=== PATIENT | male | born 1980 | race Caucasian/White ===

== ENCOUNTER 2017-12-24 09:10 | Emergency (ER) | END 2017-12-24 13:18 | disposition home or self-care (01) ==

== ENCOUNTER 2018-04-04 22:32 | Inpatient (IN) | payer BC ==
[~2018-04-04] VITALS: Ht 182.9 cm; Wt 89.1 kg
[~2018-04-04 22:32] MED LIST: MECL12.574 PO
[2018-04-05 00:12] VITALS: BP 123/64; PULSE 86; RESP 18
[2018-04-05] MEDS: SOD CHLORIDE 0.9% 1,000 ML IV SCH ×3 (01:26→17:59)
[2018-04-05] MEDS: metroNIDAZOLE 500 MG/NS (PMX) 100 ML IVPB SCH ×4 (01:26→21:56)
[2018-04-05] MEDS: morphine 2 MG INJ IV PRN ×5 (01:26→19:37)
--- NOTE | 2018-04-05 01:28 | HP ---
Date/Time of Note Date/Time of Note DATE: 04/05/18 TIME: :27 Assessment/Plan VTE Prophylaxis Pharmacological prophylaxis: other Lines/Catheters IV Catheter Type (from [facility], [place]): Saline Lock Assessment/Plan Hospital Course Objective Physical exam General: Patient is laying in bed and answers questions appropriately Mentation: Patient is alert and oriented 4, Head: Normocephalic atraumatic Eyes: EOMI, pupils reactive to light Neck: Supple, nontender, midline Respiratory: Clear to auscultation bilaterally Cardiovascular: regular rate, no obvious murmurs Gastrointestinal: non-tender to palpation, bowel sounds heard. Neurological: Moves all extremities spontaneously Rectal: Tenderness to palpation, full rectal exam refused due to pain Assessment and plan Perirectal abscess -[address] from outside facility -Dr. Jatin San, has been consulted, however at this time has not confirmed consultation -IV antibiotic -Appears stable and not septic when comparing to outside facility labs and cu rrent vitals History of hemorrhoids -Monitor Disposition -Awaiting surgical evaluation for decision on how to drain perirectal abscess, keep n.p.o. with IV fluid until then. . HPI/ROS Admit Date/Time Admit Date/Time Apr 04, 2018 at 23:48 Hx of Present Illness Patient is a male with a past medical history only significant for hemorrhoids who presents to [facility] as a transfer from outside facility for perirectal abscess. Patient has been having rectal pain for approximately 4 days at this time. Patient otherwise feels comfortable has no other acute issues. Patient denies chest pain, shortness of breath, headache, nausea, vomiting, abdominal pain, leg pain .patient did complain of some dysuria at outside facility however UA at outside facility was negative. PMH/Family/Social Past Medical History Medications Current Medications Sodium Chloride 1,000 ml @ 100 mls/hr Q10H IV ; Start 04/05/18 at 01:06 IV Flush (NS 3 ml) 3 ml PER PROTOCOL IV ; Start 04/05/18 at 01:30 Ondansetron HCl (Zofran Inj) 4 mg Q6H PRN IV NAUSEA/VOMITING; Start 04/05/18 at 01:30 Acetaminophen (Tylenol Tab) 650 mg Q6H PRN PO .PAIN 1-3 OR TEMP; Start 04/05/18 at 01:30 Acetaminophen/ Hydrocodone Bitart ([place] (5/325)) 1 tab Q6H PRN PO .PAIN 4-6; Start 04/05/18 at 01:30 Morphine Sulfate (morphine) 4 mg Q4H PRN IV .PAIN 7-10; Start 04/05/18 at 01:30 Pantoprazole (Protonix Iv) 40 mg DAILY@06 IV ; Start 04/05/18 at 06:00 Ciprofloxacin/ Dextrose 200 ml @ 200 mls/hr Q12 IVPB ; Start 04/05/18 at 01:31 Metronidazole 100 ml @ 100 mls/hr Q8 IVPB ; Start 04/05/18 at 01:31 Coded Allergies: cephalexin (Verified Allergy, Mild, 04/05/18) Social History Smoking Status: Light tobacco smoker Exam/Review of Systems Vital Signs Vitals Vital Signs Date Temp Pulse Resp B/P (MAP) Pulse Ox O2 O2 Flow FiO2 Time Delivery Rate 04/05/18 98.3 86 18 123/64 97 00:12 (83) ANMOL PISANO Apr 05, 2018 01:28
[2018-04-05] MEDS ORDERED: ONDANSETRON 4 MG INJ IV PRN (01:30)
[2018-04-05] MEDS ORDERED: NACL 0.9% 3 ML SYG IV SCH (01:30)
[2018-04-05] MEDS ORDERED: ACETAMINOPHEN 325 MG TAB PO PRN (01:30)
[2018-04-05] MEDS ORDERED: HYDROCODONE/APAP (5/325) TAB PO PRN (01:30)
[2018-04-05] MEDS: CIPROFLOXACIN 400MG/D5W 200 ML IVPB SCH ×3 (02:43→20:37)
[2018-04-05 02:48] VITALS: BP 108/59; PULSE 76; RESP 18
[2018-04-05] MEDS ORDERED: PANTOPRAZOLE 40 MG INJ ONE (04:31)
[2018-04-05] MEDS: PANTOPRAZOLE 40 MG INJ IV SCH (06:18)
[2018-04-05 07:57] VITALS: BP 109/57; PULSE 73; RESP 18
--- NOTE | 2018-04-05 13:27 | PN ---
Date/Time of Note Date/Time of Note DATE: 04/05/18 TIME: 13:27 Assessment/Plan VTE Prophylaxis SCD applied (from Nsg): Yes Pharmacological prophylaxis: NA/contraindicated Pharm contraindication: low risk/ambulating Lines/Catheters IV Catheter Type (from Nrsg): Peripheral IV Assessment/Plan Hospital Course SUBJECTIVE: Lying in bed, not in acute distress OBJECTIVE: Vital signs-see below PHYSICAL EXAM: Constitutional: Well-developed, adequately built Ivorian male, lying in bed comfortably. Psych: nl mood/affect, no complaints Head: atraumatic, normocephalic Eyes: nl conjunctiva, nl sclera ENMT: mucosa pink and moist, nl external ears & nose Neck: non-tender, supple Respiratory: clear to auscultation, normal air movement Cardiovascular: nl pulses, regular rate and rhythm Gastrointestinal: non-tender, soft, bowel sounds active in all 4 quadrants. Musculoskeletal/extremities: nl extremities to inspection, motor strength equal bilaterally, no focal deficit. Normal pulses,no cyanosis, no edema. Neurological: Alert oriented 3,nl speech, nl strength Skin: nl turgor Rectal exam: Patient refused to be examined secondary to pain and multiple exams in the past for which he is upset. ASSESSMENT/PLAN: 37-year-old male with history of hemorrhoid, who was previously told to have surgical follow-up and was unable to do so, was transferred from outside hospital for further management of perirectal abscess. 1. Perirectal abscess -General surgery has been consulted,(i left message to again today). We also feel like this may also need a colorectal surgery involvement=>will aw ait for sx recs.. -Continue antibiotics which she is currently on, pain control. 2. Hemorrhoids -Treatment as in #1. DVT prophylaxis: Not indicated PUD prophylaxis: Not indicated CODE STATUS: Full code Diet: N.p.o. until evaluated by surgeon. Disposition: Follow-up surgery recommendations. Ivorian translation was used during the entire conversation, questions answered to satisfaction. Patient and family in agreement with current plan. Patient was seen in collaboration with . Result Diagram: 04/05/18 0138 04/05/18 0138 Results 24hrs Laboratory Tests Test 04/05/18 01:38 04/05/18 10:54 White Blood Count 7.8 # Red Blood Count 4.37 L Hemoglobin 13.0 L Hematocrit 38.6 L Mean Corpuscular Volume 88.3 Mean Corpuscular Hemoglobin 29.7 Mean Corpuscular Hemoglobin Concent 33.7 Red Cell Distribution Width 13.3 Platelet Count 163 Mean Platelet Volume 10.3 # Immature Granulocytes % 0.500 H Neutrophils % 65.9 Lymphocytes % 24.6 Monocytes % 7.9 Eosinophils % 1.0 Basophils % 0.1 Nucleated Red Blood Cells % 0.0 Immature Granulocytes # 0.040 H Neutrophils # 5.2 Lymphocytes # 1.9 Monocytes # 0.6 Eosinophils # 0.1 Basophils # 0.0 Nucleated Red Blood Cells # 0.0 Sodium Level 138 Potassium Level 4.1 Chloride Level 103 Carbon Dioxide Level 27 Anion Gap 8 Blood Urea Nitrogen 17 Creatinine 1.08 Est Glomerular Filtrat Rate mL/min > 60 Glucose Level 101 Calcium Level 9.2 Total Bilirubin 0.2 Direct Bilirubin 0.00 Indirect Bilirubin 0.2 Aspartate Amino Transf (AST/SGOT) 19 Alanine Aminotransferase (ALT/SGPT) 24 Alkaline Phosphatase 82 Total Protein 7.3 Albumin 4.1 Globulin 3.20 Albumin/Globulin Ratio 1.28 Urine Color YELLOW Urine Clarity CLEAR Urine pH 5.0 Urine Specific [place] 1.030 Urine Ketones NEGATIVE Urine Nitrite NEGATIVE Urine Bilirubin NEGATIVE Urine Urobilinogen NEGATIVE Urine Leukocyte Esterase NEGATIVE Urine Microscopic RBC 1 Urine Microscopic WBC 1 Urine Mucus FEW A Urine Hemoglobin NEGATIVE Urine Glucose NEGATIVE Urine Total Protein NEGATIVE Exam/Review of Systems Exam Vitals Vital Signs Date Temp Pulse Resp B/P (MAP) Pulse Ox O2 O2 Flow FiO2 Time Delivery Rate 04/05/18 98.4 73 18 109/57 98 07:57 (74) Intake and Output 04/04/18 04/04/18 04/05/18 1414:59 22:59 06:59 IntakeIntake Total 500 ml BalanceBalance 500 ml Results Results 24hrs Laboratory Tests Test 04/05/18 01:38 04/05/18 10:54 White Blood Count 7.8 # Red Blood Count 4.37 L Hemoglobin 13.0 L Hematocrit 38.6 L Mean Corpuscular Volume 88.3 Mean Corpuscular Hemoglobin 29.7 Mean Corpuscular Hemoglobin Concent 33.7 Red Cell Distribution Width 13.3 Platelet Count 163 Mean Platelet Volume 10.3 # Immature Granulocytes % 0.500 H Neutrophils % 65.9 Lymphocytes % 24.6 Monocytes % 7.9 Eosinophils % 1.0 Basophils % 0.1 Nucleated Red Blood Cells % 0.0 Immature Granulocytes # 0.040 H Neutrophils # 5.2 Lymphocytes # 1.9 Monocytes # 0.6 Eosinophils # 0.1 Basophils # 0.0 Nucleated Red Blood Cells # 0.0 Sodium Level 138 Potassium Level 4.1 Chloride Level 103 Carbon Dioxide Level 27 Anion Gap 8 Blood Urea Nitrogen 17 Creatinine 1.08 Est Glomerular Filtrat Rate mL/min > 60 Glucose Level 101 Calcium Level 9.2 Total Bilirubin 0.2 Direct Bilirubin 0.00 Indirect Bilirubin 0.2 Aspartate Amino Transf (AST/SGOT) 19 Alanine Aminotransferase (ALT/SGPT) 24 Alkaline Phosphatase 82 Total Protein 7.3 Albumin 4.1 Globulin 3.20 Albumin/Globulin Ratio 1.28 Urine Color YELLOW Urine Clarity CLEAR Urine pH 5.0 Urine Specific [place] 1.030 Urine Ketones NEGATIVE Urine Nitrite NEGATIVE Urine Bilirubin NEGATIVE Urine Urobilinogen NEGATIVE Urine Leukocyte Esterase NEGATIVE Urine Microscopic RBC 1 Urine Microscopic WBC 1 Urine Mucus FEW A Urine Hemoglobin NEGATIVE Urine Glucose NEGATIVE Urine Total Protein NEGATIVE Medications Medication Current Medications Sodium Chloride 1,000 ml @ 100 mls/hr Q10H IV Last administered on 04/05/18at 01:26; Admin Dose 100 MLS/HR; Start 04/05/18 at 01:06 IV Flush (NS 3 ml) 3 ml PER PROTOCOL IV ; Start 04/05/18 at 01:30 Ondansetron HCl (Zofran Inj) 4 mg Q6H PRN IV NAUSEA/VOMITING; Start 04/05/18 at 01:30 Acetaminophen (Tylenol Tab) 650 mg Q6H PRN PO .PAIN 1-3 OR TEMP; Start 04/05/18 at 01:30 Acetaminophen/ Hydrocodone Bitart ([place] (5/325)) 1 tab Q6H PRN PO .PAIN 4-6; Start 04/05/18 at 01:30 Morphine Sulfate (morphine) 4 mg Q4H PRN IV .PAIN 7-10 Last administered on 04/05/18at 10:47; Admin Dose 4 MG; Start 04/05/18 at 01:30 Pantoprazole (Protonix Iv) 40 mg DAILY@06 IV Last administered on 04/05/18at 06:18; Admin Dose 40 MG; Start 04/05/18 at 06:00 Ciprofloxacin/ Dextrose 200 ml @ 200 mls/hr Q12 IVPB Last administered on 04/05/18at 10:47; Admin Dose 200 MLS/HR; Start 04/05/18 at 01:31 Metronidazole 100 ml @ 100 mls/hr Q8 IVPB Last administered on 04/05/18at 06:25; Admin Dose 100 MLS/HR; Start 04/05/18 at 01:31 CAROL LEVY NP Apr 05, 2018 13:27
[2018-04-05 14:41] VITALS: BP 116/69; PULSE 77; RESP 18
--- NOTE | 2018-04-05 14:43 | QN ---
Documentation Comment I just spoke with Dr. San who will see patient later today and okay to start a diet until evaluated by him. CAROL LEVY NP Apr 05, 2018 14:43
[2018-04-05 20:35] VITALS: BP 111/55; PULSE 70; RESP 18
[2018-04-05] MEDS: DOCUSATE SODIUM 100 MG CAP PO SCH (20:37)
--- NOTE | 2018-04-05 23:24 | CONS ---
Assessment/Plan Assessment/Plan Assessment/Plan (Daily) Possible perirectal abscess which was a tenderness history of hemorrhoids no bleeding no drainage normal blood cell count. CAT scan reveals a 12 mm area which with surrounding inflammation consistent with perirectal abscess. Recommendation examination under anesthesia with expiration possible drainage of perirectal abscess. Discussed with patient through his sister who is bilingual Persian and Luxembourger my assessment and details of plan also explained that if he I&D was performed that this would not be closed and would require healing by secondary intention. Patient is agreeable to proceed we will plan patient was scheduled for tomorrow. Consultation Date/Type/Reason Admit Date/Time Apr 04, 2018 at 23:48 Date of Consultation: Apr 05, 2018 Type of Consult Surgical consult Reason for Consultation Rectal pain question perirectal abscess Requesting Provider: CAROL LEVY NP Date/Time of Note DATE: 04/05/18 TIME: 23:23 Hx of Present Illness Patient 37-year-old male who was transferred from [facility] due to insurance reasons with 4-day history of eliud-rectal pain. Patient states that in the past he was told that he had hemorrhoids and was going to seek surgical consultation. Patient presented with pain in the upper gluteal cleft without bleeding or drainage. On evaluation at [facility] labs and imaging CAT scan revealed a possible developing perirectal abscess at the 12 o'clock position at the upper aspect of the gluteal cleft measuring approximately 1/2 cm. White blood cell count has been normal. Patient complains of exquisite tenderness in the area mentioned without any internal issues though he has had some constipation earlier today. Past medical history unremarkable Past Medical History Medical History: no pertinent history Home Meds Active Scripts Meclizine Hcl* (Antivert*) 12.5 Mg Tab, 12.5 MG PO Q6H PRN for DIZZINESS, #20 TAB Prov:ANNE OH MD 12/24/17 Medications Current Medications Sodium Chloride 1,000 ml @ 100 mls/hr Q10H IV Last administered on 04/05/18at 17:59; Admin Dose 100 MLS/HR; Start 04/05/18 at 01:06 IV Flush (NS 3 ml) 3 ml PER PROTOCOL IV ; Start 04/05/18 at 01:30 Ondansetron HCl (Zofran Inj) 4 mg Q6H PRN IV NAUSEA/VOMITING; Start 04/05/18 at 01:30 Acetaminophen (Tylenol Tab) 650 mg Q6H PRN PO .PAIN 1-3 OR TEMP; Start 04/05/18 at 01:30 Acetaminophen/ Hydrocodone Bitart ([place] (5/325)) 1 tab Q6H PRN PO .PAIN 4-6; Start 04/05/18 at 01:30 Morphine Sulfate (morphine) 4 mg Q4H PRN IV .PAIN 7-10 Last administered on 04/05/18 19:37; Admin Dose 4 MG; Start 04/05/18 at 01:30 Pantoprazole (Protonix Iv) 40 mg DAILY@06 IV Last administered on 04/05/18 06:18; Admin Dose 40 MG; Start 04/05/18 at 06:00 Ciprofloxacin/ Dextrose 200 ml @ 200 mls/hr Q12 IVPB Last administered on 04/05/18 20:37; Admin Dose 200 MLS/HR; Start 04/05/18 at 01:31 Metronidazole 100 ml @ 100 mls/hr Q8 IVPB Last administered on 04/05/18 21:56; Admin Dose 100 MLS/HR; Start 04/05/18 at 01:31 Docusate Sodium (Colace) 100 mg BID PO Last administered on 04/05/18 20:37; Admin Dose 100 MG; Start 04/05/18 at 21:00 Allergies: Coded Allergies: cephalexin (Verified Allergy, Mild, 04/05/18) Social History Smoking Status: Light tobacco smoker Exam/Review of Systems Exam Vitals Vital Signs Date Temp Pulse Resp B/P (MAP) Pulse Ox O2 O2 Flow FiO2 Time Delivery Rate 04/05/18 98.6 21:56 04/05/18 70 18 111/55 100 20:35 (73) Intake and Output 04/04/18 04/04/18 04/05/18 1515:00 23:00 07:00 IntakeIntake Total 500 ml BalanceBalance 500 ml Exam Generally in good health lungs clear to auscultation heart regular rhythm abdomen benign. On rectal examination there is no evidence of fissure or external hemorrhoid there is marked tenderness in the upper aspect of the gluteal cleft by the peritoneum at the anal opening which is somewhat indurated though no appearance of the drainage. Results Result Diagram: 04/05/18 0138 04/05/18 0138 Results 24hrs Laboratory Tests Test 04/05/18 01:38 04/05/18 10:54 White Blood Count 7.8 # Red Blood Count 4.37 L Hemoglobin 13.0 L Hematocrit 38.6 L Mean Corpuscular Volume 88.3 Mean Corpuscular Hemoglobin 29.7 Mean Corpuscular Hemoglobin Concent 33.7 Red Cell Distribution Width 13.3 Platelet Count 163 Mean Platelet Volume 10.3 # Immature Granulocytes % 0.500 H Neutrophils % 65.9 Lymphocytes % 24.6 Monocytes % 7.9 Eosinophils % 1.0 Basophils % 0.1 Nucleated Red Blood Cells % 0.0 Immature Granulocytes # 0.040 H Neutrophils # 5.2 Lymphocytes # 1.9 Monocytes # 0.6 Eosinophils # 0.1 Basophils # 0.0 Nucleated Red Blood Cells # 0.0 Sodium Level 138 Potassium Level 4.1 Chloride Level 103 Carbon Dioxide Level 27 Anion Gap 8 Blood Urea Nitrogen 17 Creatinine 1.08 Est Glomerular Filtrat Rate mL/min > 60 Glucose Level 101 Calcium Level 9.2 Total Bilirubin 0.2 Direct Bilirubin 0.00 Indirect Bilirubin 0.2 Aspartate Amino Transf (AST/SGOT) 19 Alanine Aminotransferase (ALT/SGPT) 24 Alkaline Phosphatase 82 Total Protein 7.3 Albumin 4.1 Globulin 3.20 Albumin/Globulin Ratio 1.28 Urine Color YELLOW Urine Clarity CLEAR Urine pH 5.0 Urine Specific [place] 1.030 Urine Ketones NEGATIVE Urine Nitrite NEGATIVE Urine Bilirubin NEGATIVE Urine Urobilinogen NEGATIVE Urine Leukocyte Esterase NEGATIVE Urine Microscopic RBC 1 Urine Microscopic WBC 1 Urine Mucus FEW A Urine Hemoglobin NEGATIVE Urine Glucose NEGATIVE Urine Total Protein NEGATIVE Medications Medication Current Medications Sodium Chloride 1,000 ml @ 100 mls/hr Q10H IV Last administered on 04/05/18at 17:59; Admin Dose 100 MLS/HR; Start 04/05/18 at 01:06 IV Flush (NS 3 ml) 3 ml PER PROTOCOL IV ; Start 04/05/18 at 01:30 Ondansetron HCl (Zofran Inj) 4 mg Q6H PRN IV NAUSEA/VOMITING; Start 04/05/18 at 01:30 Acetaminophen (Tylenol Tab) 650 mg Q6H PRN PO .PAIN 1-3 OR TEMP; Start 04/05/18 at 01:30 Acetaminophen/ Hydrocodone Bitart ([place] (5/325)) 1 tab Q6H PRN PO .PAIN 4-6; Start 04/05/18 at 01:30 Morphine Sulfate (morphine) 4 mg Q4H PRN IV .PAIN 7-10 Last administered on 04/05/18 19:37; Admin Dose 4 MG; Start 04/05/18 at 01:30 Pantoprazole (Protonix Iv) 40 mg DAILY@06 IV Last administered on 04/05/18 06:18; Admin Dose 40 MG; Start 04/05/18 at 06:00 Ciprofloxacin/ Dextrose 200 ml @ 200 mls/hr Q12 IVPB Last administered on 04/05/18 20:37; Admin Dose 200 MLS/HR; Start 04/05/18 at 01:31 Metronidazole 100 ml @ 100 mls/hr Q8 IVPB Last administered on 04/05/18 21:56; Admin Dose 100 MLS/HR; Start 04/05/18 at 01:31 Docusate Sodium (Colace) 100 mg BID PO Last administered on 04/05/18 20:37; Admin Dose 100 MG; Start 04/05/18 at 21:00 MARTHA TEJADA MD Apr 05, 2018 23:24
[2018-04-06] VITALS (18 sets, daily range): BP systolic 105–134; BP diastolic 51–79; PULSE 70–105; RESP 15–20
[2018-04-06] MEDS ORDERED: KETOROLAC 30 MG INJ IM PRN (02:30)
[2018-04-06] MEDS ORDERED: ACETAMINOPHEN 1000MG/100ML IV 100 ML IVPB PRN (03:00)
[2018-04-06] MEDS: PANTOPRAZOLE 40 MG INJ IV SCH (05:27)
[2018-04-06] MEDS: metroNIDAZOLE 500 MG/NS (PMX) 100 ML IVPB SCH ×3 (05:27→21:58)
[2018-04-06] MEDS: SOD CHLORIDE 0.9% 1,000 ML IV SCH ×2 (05:28→17:06)
[2018-04-06] MEDS: morphine 2 MG INJ IV PRN ×2 (05:29→16:54)
[2018-04-06] MEDS: CIPROFLOXACIN 400MG/D5W 200 ML IVPB SCH ×2 (08:43→20:32)
[2018-04-06] MEDS: DOCUSATE SODIUM 100 MG CAP PO SCH ×2 (08:43→20:32)
--- NOTE | 2018-04-06 10:56 | PREAC ---
Date/Time of Note Date/Time of Note DATE: 04/06/18 TIME: 10:54 Anesthesia Eval and Record Evaluation Time Pre-Procedure Interview DATE: 04/06/18 TIME: 10:54 Age 37 Sex male NPO: 8 hrs Preoperative diagnosis hemorroid perirectal abscess Planned procedure I &D perirectal abcess EUA Past Medical History Past Medical History: None Surgery & Anesthesia Issues No known issue Meds Anticoagulation: No Beta Stanley within 24 hr: No Reason Beta Stanley not given: Pt. not on B-Stanley Active Scripts Meclizine Hcl* (Antivert*) 12.5 Mg Tab, 12.5 MG PO Q6H PRN for DIZZINESS, #20 TAB Prov:ANNE OH MD 12/24/17 Current Medications Sodium Chloride 1,000 ml @ 100 mls/hr Q10H IV Last administered on 04/06/18at 05:28; Admin Dose 100 MLS/HR; Start 04/05/18 at 01:06 IV Flush (NS 3 ml) 3 ml PER PROTOCOL IV ; Start 04/05/18 at 01:30 Ondansetron HCl (Zofran Inj) 4 mg Q6H PRN IV NAUSEA/VOMITING; Start 04/05/18 at 01:30 Acetaminophen (Tylenol Tab) 650 mg Q6H PRN PO .PAIN 1-3 OR TEMP; Start 04/05/18 at 01:30 Acetaminophen/ Hydrocodone Bitart ([place] (5/325)) 1 tab Q6H PRN PO .PAIN 4-6; Start 04/05/18 at 01:30 Morphine Sulfate (morphine) 4 mg Q4H PRN IV .PAIN 7-10 Last administered on 04/06/18at 05:29; Admin Dose 4 MG; Start 04/05/18 at 01:30 Pantoprazole (Protonix Iv) 40 mg DAILY@06 IV Last administered on 04/06/18at 05:27; Admin Dose 40 MG; Start 04/05/18 at 06:00 Ciprofloxacin/ Dextrose 200 ml @ 200 mls/hr Q12 IVPB Last administered on 04/06/18at 08:43; Admin Dose 200 MLS/HR; Start 04/05/18 at 01:31 Metronidazole 100 ml @ 100 mls/hr Q8 IVPB Last administered on 04/06/18at 05:27; Admin Dose 100 MLS/HR; Start 04/05/18 at 01:31 Docusate Sodium (Colace) 100 mg BID PO Last administered on 04/05/18at 20:37; Admin Dose 100 MG; Start 04/05/18 at 21:00 Acetaminophen 100 ml @ 400 mls/hr Q12 PRN IVPB MILD PAIN(1-3)OR ELEVATED TEMP Last administered on 04/06/18at 02:48; Admin Dose 400 MLS/HR; Start 04/06/18 at 03:00; Stop 04/07/18 at 02:59 Meds reviewed: Yes Allergies Coded Allergies: cephalexin (Verified Allergy, Mild, 04/05/18) Allergies Reviewed: Yes Labs/Studies Labs Reviewed: Reviewed by anesthesiologist Result Diagram: 04/06/18 0454 04/06/18 0454 Laboratory Tests 04/06/18 04:54 test: N/A Studies: ECG (n/a), CXR (n/a) Pre-procedure Exam Last vitals Vital Signs Date Temp Pulse Resp B/P (MAP) Pulse Ox O2 O2 Flow FiO2 Time Delivery Rate 04/06/18 99.1 70 18 109/58 96 08:00 (75) Airway: Adequate mouth opening Mallampati: Mallampati I Teeth: Normal Lung: Normal Heart: Normal ASA Physical Status ASA physical status: 1 Emergency: None Planned Anesthetic General/MAC: LMA, MAC Planned Pain Management Parenteral pain med Pre-operative Attestations Prior to commencing anesthesia and surgery, the patient was re-evaluated, there was verification of: *The patient's identity *The results of appropriate recent lab work and preoperative vital signs *The above evaluation not changing prior to induction *Anesthetic plan, risk benefits, alternative and complications discussed with patient/family; questions answered; patient/family understands, accepts and wishes to proceed. LIZ MANRIQUEZ MD Apr 06, 2018 10:56
[2018-04-06] MEDS ORDERED: MEPERIDINE 25 MG INJ IV PRN (11:00)
[2018-04-06] MEDS ORDERED: HYDROmorphONE 1 MG/5 ML IV SYRINGE IV PRN ×3 (11:00)
[2018-04-06] MEDS ORDERED: hydrALAzine 20 MG INJ IV PRN (11:00)
[2018-04-06] MEDS ORDERED: DIPHENHYDRAMINE 50 MG INJ IV PRN (11:00)
[2018-04-06] MEDS ORDERED: LABETALOL HCL 20MG INJ IV PRN (11:00)
[2018-04-06] MEDS ORDERED: ONDANSETRON 4 MG INJ IV PRN (11:00)
[2018-04-06] MEDS ORDERED: EPHEDrine SULFATE 50 MG/5 ML SYG IV PRN (11:00)
[2018-04-06] MEDS ORDERED: PROPOFOL 20 ML ONE ×2 (11:10→11:52)
[2018-04-06] MEDS ORDERED: FENTAnyl 50 MCG/ML VIAL ONE ×2 (11:10→11:52)
[2018-04-06] MEDS ORDERED: ONDANSETRON 4 MG INJ ONE (11:12)
[2018-04-06] MEDS ORDERED: METOCLOPRAMIDE 10 MG INJ ONE (11:12)
[2018-04-06] MEDS ORDERED: LIDOCAINE 1%/EPI (1:100,000) (MDV) 20 ML ONE (11:30)
[2018-04-06] MEDS ORDERED: BUPIVACAINE 0.5% (SDV) 30 ML INJ ONE (11:30)
[2018-04-06] MEDS ORDERED: MEPERIDINE 100 MG INJ ONE (12:06)
[2018-04-06] MEDS ORDERED: SUCCINYLCHOLINE CHLORIDE 100 MG/5 ML SYG IV ONE (12:06)
--- NOTE | 2018-04-06 12:54 | OPR ---
Date/Time of Note Date/Time of Note DATE: 04/06/18 TIME: 12:50 Operative Report Free Text/Dictation Operative report Procedure Date: Apr 06, 2018 Preoperative Diagnosis Perianal and perirectal abscess Postoperative Diagnosis Posterior perirectal abscess Operation/Procedure Performed Examination under anesthesia incision and drainage posterior perirectal abscess Surgeon Martha San see signature line Pipe Line Gauger None Anesthesia Type: MAC Anesthesiologist: LIZ MANRIQUEZ MD Estimated Blood Loss: 0 - 10 ml's Transfusion none Specimen Culture of pus for culture and sensitivity Grafts/Implants none Tubes/Drains None Complications none Pt Condition Post Procedure: stable Disposition: PACU Indications Patient presented with severe pain and lump in the perirectal space posterior to the rectum. Patient had CAT scan at outside hospital which showed a 1/2 cm area which might be a developing abscess. He was transferred to [facility]. Surgical evaluation was requested I saw the patient had exquisite tenderness and was unable to tolerate rectal exam I recommended examination under anesthesia and drainage of perirectal abscess. Procedure Description Patient brought to the operating placed supine position monitored anesthesia with LMA was initiated patient was placed in stirrups shaved prepped and draped. Timeout was completed. Digital examination was performed and then anoscopy which showed moderate hemorrhoid without bleeding no evidence of fissure or fistula in the posterior peritoneum there was a firm lump which was attempted to be aspirated which did not express any fluid. An incision was then made with a scalpel and hemostat then entered a pocket of pus which was cultured and sent for aerobes anaerobes and sensitivity. The area was explored there is again no evidence of fistula. Hemostasis was controlled with monopolar cautery the wound was then irrigated packed with half- inch Nu Gauze and the patient was brought to recovery room in stable condition MARTHA SAN MD Apr 06, 2018 12:54
[2018-04-06] MEDS ORDERED: metroNIDAZOLE 500 MG/NS (PMX) 100 ML IVPB SCH (13:00)
[2018-04-06] MEDS ORDERED: CIPROFLOXACIN 400MG/D5W 200 ML IVPB SCH (13:00)
--- NOTE | 2018-04-06 21:41 | PN ---
Date/Time of Note Date/Time of Note DATE: 04/06/18 TIME: 21:39 Assessment/Plan VTE Prophylaxis Risk score (from Ns)>0 risk: 1 SCD applied (from [facility] [place]): Yes SCD contraindicated: low risk/ambulating Pharmacological prophylaxis: NA/contraindicated Pharm contraindication: surgical contra Lines/Catheters IV Catheter Type (from [facility]): Peripheral IV Assessment/Plan Hospital Course A/P 1 Perirectal Abscess, s/p I&D; stable. home soon on antibiotics 2 Hemorrhoids S: no distress O: vss PE no pallor reg s1s2 no mrg ctab bs+ nt; nd; no rrg no edema Result Diagram: 04/06/1845304/06/184 Results 24hrs Laboratory Tests Test 04/06/18 04:54 White Blood Count 9.3 Red Blood Count 4.33 L Hemoglobin 12.9 L Hematocrit 38.3 L Mean Corpuscular Volume 88.5 Mean Corpuscular Hemoglobin 29.8 Mean Corpuscular Hemoglobin Concent 33.7 Red Cell Distribution Width 13.2 Platelet Count 172 Mean Platelet Volume 10.5 H Immature Granulocytes % 0.400 Neutrophils % 72.3 Lymphocytes % 20.2 Monocytes % 6.5 Eosinophils % 0.3 Basophils % 0.3 Nucleated Red Blood Cells % 0.0 Immature Granulocytes # 0.040 H Neutrophils # 6.7 Lymphocytes # 1.9 Monocytes # 0.6 Eosinophils # 0.0 Basophils # 0.0 Nucleated Red Blood Cells # 0.0 Sodium Level 138 Potassium Level 4.2 Chloride Level 101 Carbon Dioxide Level 27 Anion Gap 10 Blood Urea Nitrogen 11 Creatinine 1.21 Est Glomerular Filtrat Rate mL/min > 60 Glucose Level 114 Hemoglobin A1c 5.0 Calcium Level 9.1 Magnesium Level 2.0 Total Bilirubin 0.3 Direct Bilirubin 0.00 Indirect Bilirubin 0.3 Aspartate Amino Transf (AST/SGOT) 22 Alanine Aminotransferase (ALT/SGPT) 19 Alkaline Phosphatase 97 Total Protein 7.2 Albumin 4.0 Globulin 3.20 Albumin/Globulin Ratio 1.25 Exam/Review of Systems Exam Vitals Vital Signs Date Temp Pulse Resp B/P (MAP) Pulse Ox O2 O2 Flow FiO2 Time Delivery Rate 04/06/18 100.1 20:40 04/06/18 105 20 114/51 95 20:00 (72) 04/06/18 Room Air 13:22 Intake and Output 04/05/18 04/05/18 04/06/18 1515:00 23:00 07:00 IntakeIntake Total 400 ml 1640 ml 1400 ml OutputOutput Total 2 ml 10 ml BalanceBalance 400 ml 1638 ml 1390 ml Results Results 24hrs Laboratory Tests Test 04/06/18 04:54 White Blood Count 9.3 Red Blood Count 4.33 L Hemoglobin 12.9 L Hematocrit 38.3 L Mean Corpuscular Volume 88.5 Mean Corpuscular Hemoglobin 29.8 Mean Corpuscular Hemoglobin Concent 33.7 Red Cell Distribution Width 13.2 Platelet Count 172 Mean Platelet Volume 10.5 H Immature Granulocytes % 0.400 Neutrophils % 72.3 Lymphocytes % 20.2 Monocytes % 6.5 Eosinophils % 0.3 Basophils % 0.3 Nucleated Red Blood Cells % 0.0 Immature Granulocytes # 0.040 H Neutrophils # 6.7 Lymphocytes # 1.9 Monocytes # 0.6 Eosinophils # 0.0 Basophils # 0.0 Nucleated Red Blood Cells # 0.0 Sodium Level 138 Potassium Level 4.2 Chloride Level 101 Carbon Dioxide Level 27 Anion Gap 10 Blood Urea Nitrogen 11 Creatinine 1.21 Est Glomerular Filtrat Rate mL/min > 60 Glucose Level 114 Hemoglobin A1c 5.0 Calcium Level 9.1 Magnesium Level 2.0 Total Bilirubin 0.3 Direct Bilirubin 0.00 Indirect Bilirubin 0.3 Aspartate Amino Transf (AST/SGOT) 22 Alanine Aminotransferase (ALT/SGPT) 19 Alkaline Phosphatase 97 Total Protein 7.2 Albumin 4.0 Globulin 3.20 Albumin/Globulin Ratio 1.25 Medications Medication Current Medications Sodium Chloride 1,000 ml @ 100 mls/hr Q10H IV Last administered on 04/06/18at 05:28; Admin Dose 100 MLS/HR; Start 04/05/18 at 01:06 IV Flush (NS 3 ml) 3 ml PER PROTOCOL IV ; Start 04/05/18 at 01:30 Ondansetron HCl (Zofran Inj) 4 mg Q6H PRN IV NAUSEA/VOMITING; Start 04/05/18 at 01:30 Acetaminophen (Tylenol Tab) 650 mg Q6H PRN PO .PAIN 1-3 OR TEMP Last administered on 04/06/18at 19:41; Admin Dose 650 MG; Start 04/05/18 at 01:30 Acetaminophen/ Hydrocodone Bitart ([place] (5/325)) 1 tab Q6H PRN PO .PAIN 4-6; Start 04/05/18 at 01:30 Morphine Sulfate (morphine) 4 mg Q4H PRN IV .PAIN 7-10 Last administered on 04/06/18 16:54; Admin Dose 4 MG; Start 04/05/18 at 01:30 Pantoprazole (Protonix Iv) 40 mg DAILY@06 IV Last administered on 04/06/18 05:27; Admin Dose 40 MG; Start 04/05/18 at 06:00 Ciprofloxacin/ Dextrose 200 ml @ 200 mls/hr Q12 IVPB Last administered on 04/06/18 20:32; Admin Dose 200 MLS/HR; Start 04/05/18 at 01:31 Metronidazole 100 ml @ 100 mls/hr Q8 IVPB Last administered on 04/06/18 15:07; Admin Dose 100 MLS/HR; Start 04/05/18 at 01:31 Docusate Sodium (Colace) 100 mg BID PO Last administered on 04/06/18 20:32; Admin Dose 100 MG; Start 04/05/18 at 21:00 Acetaminophen 100 ml @ 400 mls/hr Q12 PRN IVPB MILD PAIN(1-3)OR ELEVATED TEMP Last administered on 04/06/18 02:48; Admin Dose 400 MLS/HR; Start 04/06/18 at 03:00; Stop 04/07/18 at 02:59 GEORGE BETTS MD Apr 06, 2018 21:41
[2018-04-07 01:56] VITALS: BP 115/70; PULSE 77; RESP 18
[2018-04-07] MEDS: SOD CHLORIDE 0.9% 1,000 ML IV SCH (03:06)
[2018-04-07] MEDS: metroNIDAZOLE 500 MG/NS (PMX) 100 ML IVPB SCH ×3 (06:17→22:06)
[2018-04-07] MEDS: PANTOPRAZOLE 40 MG INJ IV SCH (06:18)
[2018-04-07] MEDS: morphine 2 MG INJ IV PRN ×2 (06:19→20:09)
--- NOTE | 2018-04-07 07:14 | PAC ---
Date/Time of Note Date/Time of Note DATE: 04/07/18 TIME: 07:14 Post-Anesthesia Notes Post-Anesthesia Note Last documented vital signs Vital Signs Date Temp Pulse Resp B/P (MAP) Pulse Ox O2 O2 Flow FiO2 Time Delivery Rate 04/07/18 99.0 77 18 115/70 99 01:56 (85) 04/06/18 Room Air 13:22 Activity: WNL Respiratory function: WNL Cardiovascular function: WNL Mental status: Baseline Pain reasonably controlled: Yes Hydration appropriate: Yes Nausea/Vomiting absent: No LIZ MANRIQUEZ MD Apr 07, 2018 07:14
[2018-04-07] MEDS: DOCUSATE SODIUM 100 MG CAP PO SCH ×2 (08:04→20:09)
[2018-04-07] MEDS: CIPROFLOXACIN 400MG/D5W 200 ML IVPB SCH ×2 (08:04→20:09)
[2018-04-07 08:12] VITALS: BP 106/55; PULSE 86; RESP 18
[2018-04-07 14:41] VITALS: BP 118/65; PULSE 108; RESP 19
--- NOTE | 2018-04-07 16:57 | PDOCDIS ---
Discharge Instructions CONDITION [id number] Patient Condition: [id number] Good HOME CARE INSTRUCTIONS: [id number] Diet Instructions: [id number] Regular ACTIVITY: [id number] Activity Restrictions: [id number] Slowly Increase Activity FOLLOW UP/APPOINTMENTS Follow-up Plan Dr Marcy San 1wk GEORGE BETTS MD Apr 07, 2018 16:57
--- NOTE | 2018-04-07 16:57 | DS ---
Date/Time of Note Date/Time of Note DATE: 04/07/18 TIME: 16:55 Discharge Summary Admission/Discharge Info Admit Date/Time Apr 04, 2018 at 23:48 Discharge Date/Time Patient Condition: Good Consults Dr Marcy San Procedures Postoperative Diagnosis Posterior perirectal abscess Operation/Procedure Performed Examination under anesthesia incision and drainage posterior perirectal abscess Gram-negative rods. Minimal growth Hx of Present Illness 37-year-old gentleman admitted with perirectal abscess. Hospital Course A/P 1 Perirectal Abscess, s/p I&D; stable. home on Cipro Flagyl. Daily wet-to-dry dressing changes. f/u surgeon 1 week. 2 Hemorrhoids Home Meds Active Scripts Meclizine Hcl* (Antivert*) 12.5 Mg Tab, 12.5 MG PO Q6H PRN for DIZZINESS, #20 TAB Prov:ANNE OH MD 12/24/17 Primary Care Provider GEORGE Gaspar MD Apr 07, 2018 16:57
[2018-04-07] MEDS ORDERED: CIPR500T4 PO (16:58)
[2018-04-07] MEDS ORDERED: METR-122 PO (16:58)
[2018-04-07] MEDS ORDERED: DOCU-144 PO (16:58)
[2018-04-07] MEDS ORDERED: ACET325T33 PO (16:58)
[2018-04-07 20:07] VITALS: BP 111/59; PULSE 80; RESP 17
[2018-04-08 02:00] VITALS: BP 112/61; PULSE 76; RESP 16
[2018-04-08] MEDS: PANTOPRAZOLE 40 MG INJ IV SCH (05:31)
[2018-04-08] MEDS: metroNIDAZOLE 500 MG/NS (PMX) 100 ML IVPB SCH ×3 (05:31→22:51)
[2018-04-08 07:53] VITALS: BP 94/55; PULSE 72; RESP 18
[2018-04-08] MEDS: DOCUSATE SODIUM 100 MG CAP PO SCH ×2 (09:05→20:08)
[2018-04-08] MEDS: CIPROFLOXACIN 400MG/D5W 200 ML IVPB SCH ×2 (09:05→20:09)
--- NOTE | 2018-04-08 12:16 | PN ---
Date/Time of Note Date/Time of Note DATE: 04/08/18 TIME: 12:15 Assessment/Plan VTE Prophylaxis Risk score (from Nsg)>0 risk: 2 SCD applied (from Nsg): Yes Pharmacological prophylaxis: NA/contraindicated Pharm contraindication: low risk/ambulating Lines/Catheters IV Catheter Type (from Nrsg): Peripheral IV Assessment/Plan Hospital Course SUBJECTIVE: Patient insisting that he wants to go home. OBJECTIVE: Physical Exam General: Adequately build 37 year-old male lying in bed in no apparent distress. HEENT: Normocephalic, atraumatic. Eyes: Anicteric sclerae, conjunctivae clear. ENT: Nasal septum midline, oral mucosa moist. Neck supple, no JVD noticed. Respiratory: Bilaterally clear breath sounds. No use of accessory muscles of respiration. No adventitious breath sounds. Cardiovascular: S1, S2 heard. No murmurs or gallops. Abdomen: Soft, nontender, and nondistended. Bowel sounds positive in all 4 quadrants. Genitourinary: Deferred. Extremities: No cyanosis, no clubbing, no edema. Peripheral pulses palpable. Neurologic: Cranial nerves II through XII grossly intact. The patient is awake, alert, and oriented. Skin: Normal skin turgor. No skin rashes. Labs & Vitals per chart ASSESSMENT & PLAN 37-year-old male with past medical history of hemorrhoids who was transferred from an outside facility for further evaluation of perirectal abscess. The patient was admitted to inpatient setting for further treatment and evaluation. 1. Perirectal abscess. -S/P incision and drainage of posterior perirectal abscess on 04/06/2018. -Abscess culture showing E. coli ESBL and enterococcus species. -Obtain ID consult for antimicrobial management. 2. History of hemorrhoids. 3. Fluids, electrolytes, and nutrition. -Regular diet. 4. DVT prophylaxis. -Bilateral SCDs. 5. Plan. -Continue pain control. -Await ID evaluation. The plan of care was explained to the patient's family, who was at the bedside. The patient was seen in collaboration with Dr. Yu. Result Diagram: 04/06/18 0454 04/06/18 0454 Exam/Review of Systems Exam Vitals Vital Signs Date Temp Pulse Resp B/P (MAP) Pulse Ox O2 O2 Flow FiO2 Time Delivery Rate 04/08/18 98.1 72 18 94/55 (68) 97 Room Air 07:53 Intake and Output 04/07/18 04/07/18 04/08/18 1414:59 22:59 06:59 IntakeIntake Total 880 ml 900 ml 700 ml BalanceBalance 880 ml 900 ml 700 ml Medications Medication Current Medications IV Flush (NS 3 ml) 3 ml PER PROTOCOL IV ; Start 04/05/18 at 01:30 Ondansetron HCl (Zofran Inj) 4 mg Q6H PRN IV NAUSEA/VOMITING; Start 04/05/18 at 01:30 Acetaminophen (Tylenol Tab) 650 mg Q6H PRN PO .PAIN 1-3 OR TEMP Last administered on 04/06/18 19:41; Admin Dose 650 MG; Start 04/05/18 at 01:30 Acetaminophen/ Hydrocodone Bitart ([place] (5/325)) 1 tab Q6H PRN PO .PAIN 4-6; Start 04/05/18 at 01:30 Morphine Sulfate (morphine) 4 mg Q4H PRN IV .PAIN 7-10 Last administered on 04/07/18at 20:09; Admin Dose 4 MG; Start 04/05/18 at 01:30 Pantoprazole (Protonix Iv) 40 mg DAILY@06 IV Last administered on 04/08/18 05:31; Admin Dose 40 MG; Start 04/05/18 at 06:00 Ciprofloxacin/ Dextrose 200 ml @ 200 mls/hr Q12 IVPB Last administered on 04/08/18 09:05; Admin Dose 200 MLS/HR; Start 04/05/18 at 01:31 Metronidazole 100 ml @ 100 mls/hr Q8 IVPB Last administered on 04/08/18 05:31; Admin Dose 100 MLS/HR; Start 04/05/18 at 01:31 Docusate Sodium (Colace) 100 mg BID PO Last administered on 04/08/18 09:05; Ad min Dose 100 MG; Start 04/05/18 at 21:00 MOISÉS JOE NP Apr 08, 2018 12:15
[2018-04-08] MEDS: morphine 2 MG INJ IV PRN ×2 (13:53→20:52)
[2018-04-08 14:54] VITALS: BP 115/57; PULSE 73; RESP 18
[2018-04-08 20:00] VITALS: BP 110/55; PULSE 91; RESP 18
[2018-04-09 02:00] VITALS: BP 94/50; PULSE 69; RESP 19
[2018-04-09] MEDS ORDERED: PANTOPRAZOLE (EC) 40 MG TAB PO SCH (06:00)
[2018-04-09] MEDS: metroNIDAZOLE 500 MG/NS (PMX) 100 ML IVPB SCH (06:01)
[2018-04-09 07:10] VITALS: BP 108/61; PULSE 78; RESP 18
[2018-04-09] MEDS: morphine 2 MG INJ IV PRN (08:57)
[2018-04-09] MEDS: DOCUSATE SODIUM 100 MG CAP PO SCH (09:00)
[2018-04-09] MEDS: CIPROFLOXACIN 400MG/D5W 200 ML IVPB SCH (09:00)
--- NOTE | 2018-04-09 10:29 | CONS ---
Assessment/Plan Assessment/Plan Hospital Course (Demo Recall) ID PROGRESS NOTE CURRENT ABX: DAY # 3.5 => Cipro IV + Flagyl 04/06/184 04/06/18 0454 HOSPITAL COURSE POD# 3-> s/p Apr 06, 2018 Examination under anesthesia incision and drainage posterior perirectal abscess Preoperative Diagnosis: Perianal and perirectal abscess Postoperative Diagnosis: Posterior perirectal abscess 24H INTERVAL SUMMARY * Clinically stable -A/A/O - eager to dc home. No f/c/n/v/d/c -- rectal pain in controlled. MICRO/OTHER * 04/06/18 RECTAL ABSCESS WOUND CULTURE Preliminary Organism 1 ESCHERICHIA COLI (ESBL) QUANTITY SCANT GROWTH . MULTI DRUG RESISTANT ORGANISM Organism 2 ENTEROCOCCUS SPECIES QUANTITY ISOLATED FROM BROTH ONLY ECOLI ESBL ECOLI ESBL M.I.C. RX M.I.C. RX --------- --- --------- --- AMPICILLIN >=32 R CEFAZOLIN R CEFEPIME <=1 S CEFOTAXIME R CIPROFLOXACIN <=0.25 S GENTAMICIN <=1 S LEVOFLOXACIN <=0.12 S MEROPENEM 0.032 S TOBRAMYCIN <=1 S TRIMETHOPRIM/SULFAMETHOXAZOLE <=20 S PIPERACILLIN/TAZOBACTAM <=4 S PHYSICAL EXAMINATION: GENERAL: Afebrile, VSS HEENT: AT, NC, anicteric NECK: Supple, trach midline CHEST: Equal chest rise bilaterally, without dyspnea on observation HEART: Pulse RRR ABDOMEN: Soft / NT : Normal M RECT: Wound drainage EXTREMITIES: Warm, dry SKIN: No rash, no diaphoresis ID ASSESSMENT 37 yo M admit with: 1. SIRS w/fevers > 102.2 on admission due to #2 => RESOLVED 2. Perirectal Abscess, s/p I&D 3. Hemorrhoids (-)MRSA Nares ABX ALLERGIES: KEFLEX INVASIVES: PIV CURRENT ABX: DAY # 3.5 => Cipro IV + Flagyl ID RECOMMENDATIONS/PLAN: 1. Per Dr. Quiroz: Patient may DC home on Cipro 750mg po BID + Flagyl 500mg po TID x 7 days 2. Daily wet-to-dry dressing changes. f/u surgeon 1 week. Consultation Date/Type/Reason Admit Date/Time Apr 05, 2018 at 00:00 Initial Consult Date 04/05/18 Requesting Provider: CAROL LEVY NP Date/Time of Note DATE: 04/09/18 TIME: 10:01 Exam/Review of Systems Exam Vitals Vital Signs Date Temp Pulse Resp B/P (MAP) Pulse Ox O2 O2 Flow FiO2 Time Delivery Rate 04/09/18 98.5 78 18 108/61 98 07:10 (77) 04/08/18 Room Air 14:54 Intake and Output 04/08/18 04/08/18 04/09/18 1515:00 23:00 07:00 IntakeIntake Total 1100 ml 540 ml 400 ml OutputOutput Total 300 ml 300 ml BalanceBalance 800 ml 240 ml 400 ml Results Result Diagram: 04/06/18 0454 04/06/18 0454 Medications Medication Current Medications IV Flush (NS 3 ml) 3 ml PER PROTOCOL IV ; Start 04/05/18 at 01:30 Ondansetron HCl (Zofran Inj) 4 mg Q6H PRN IV NAUSEA/VOMITING; Start 04/05/18 at 01:30 Acetaminophen (Tylenol Tab) 650 mg Q6H PRN PO .PAIN 1-3 OR TEMP Last administered on 04/06/18at 19:41; Admin Dose 650 MG; Start 04/05/18 at 01:30 Acetaminophen/ Hydrocodone Bitart ([place] (5/325)) 1 tab Q6H PRN PO .PAIN 4-6; Start 04/05/18 at 01:30 Morphine Sulfate (morphine) 4 mg Q4H PRN IV .PAIN 7-10 Last administered on 04/09/18at 08:57; Admin Dose 4 MG; Start 04/05/18 at 01:30 Ciprofloxacin/ Dextrose 200 ml @ 200 mls/hr Q12 IVPB Last administered on 04/09/18at 09:00; Admin Dose 200 MLS/HR; Start 04/05/18 at 01:31 Metronidazole 100 ml @ 100 mls/hr Q8 IVPB Last administered on 04/09/18at 06:01; Admin Dose 100 MLS/HR; Start 04/05/18 at 01:31 Docusate Sodium (Colace) 100 mg BID PO Last administered on 04/09/18at 09:00; Admin Dose 100 MG; Start 04/05/18 at 21:00 Pantoprazole (Protonix Tab) 40 mg DAILY@06 PO Last administered on 04/09/18at 06:01; Admin Dose 40 MG; Start 04/09/18 at 06:00 VIDA KINSEY NP Apr 09, 2018 10:26
--- NOTE | 2018-04-09 12:13 | CONS ---
DATE OF ADMISSION: 04/05/2018 DATE OF CONSULTATION: 04/08/2018 TYPE OF CONSULTATION: Infectious disease. REASON FOR CONSULTATION: Antibiotic management. HISTORY OF PRESENT ILLNESS: Fouzia Herrera is a 37-year-old male with past medical history of hemorrho ids, who presented to [facility] as a transfer for perirectal abscess. He has been having r ectal pain for approximately 4 days at a time. Otherwise, he feels comfortable, has no other issues. The patient on admission was noted to have a [address] Jatin San was consu lted. On 04/06/2018, the patient underwent perianal and perirectal abscess with incision and drainag e, posterior perirectal abscess. As noted, he presented with severe pain and a lump in the perirecta l space and this was drained. His organisms were E. coli ESBL sensitive to Levaquin and Enterococcus , scant growth from the broth only. The patient is currently on Cipro and Flagyl. PAST MEDICAL HISTORY: Operations as outlined. FAMILY HISTORY: Noncontributory. SOCIAL HISTORY: He does not smoke, drink or abuse drugs. ALLERGIES: NONE TO PENICILLIN, SULFA OR FOODS. MEDICATIONS: Per chart. REVIEW OF SYSTEMS: As per HPI. PHYSICAL EXAMINATION: GENERAL: The patient is a well-developed, well-nourished male, alert, responsive, in no acute distre ss. VITAL SIGNS: Stable. He is afebrile. SKIN: Without generalized rash. HEENT: Within normal limits. NECK: Supple. LYMPH NODES: None palpable. LUNGS: Clear to P and A. HEART: Without murmur or gallop. ABDOMEN: Soft, nontender without organosplenomegaly or masses. EXTREMITIES: Without cyanosis, clubbing or edema. RECTAL: Deferred. The patient has his rectal area packed. EXTREMITIES: Without cyanosis, clubbing or edema. NEUROLOGICAL: No focal neurological abnormality. IMPRESSION AND PLAN: The patient is doing nicely at the present time, status post surgery. Our plan will be to send him out on Levaquin and Flagyl. I do not think the Enterococcus is significant at t his point. His white count is 9.3 as of 04/06/2018. We are going to change him to Levaquin and Flag yl and give him another 7 days of therapy. I will dictate my findings to the hospitalist and to Dr. San. Dictated By: SERINA HERRING MD, JD/NACHO Conf#: [id number] DID#: [id number] CC: GEORGE BETTS MD; ANMOL PISANO MD;*End*
[2018-04-09] MEDS ORDERED: metroNIDAZOLE 500 MG TAB PO SCH (14:00)
--- NOTE | 2018-04-09 14:40 | DS ---
Date/Time of Note Date/Time of Note DATE: 04/09/18 TIME: 14:40 Discharge Summary Admission/Discharge Info Admit Date/Time Apr 05, 2018 at 00:00 Discharge Date/Time Discharge Diagnosis 1. Perirectal abscess. S/P incision and drainage of posterior perirectal abscess on 04/06/2018. 2. History of hemorrhoids. Patient Condition: Stable Consults 1. Jatin San MD, General Surgery. 2. Chaim Quiroz MD, Infectious Diseases. Procedures Operative Report Free Text/Dictation Operative report Procedure Date: Apr 06, 2018 Preoperative Diagnosis Perianal and perirectal abscess Postoperative Diagnosis Posterior perirectal abscess Operation/Procedure Performed Examination under anesthesia incision and drainage posterior perirectal abscess Surgeon Jatin San Hx of Present Illness This is a 37-year-old male with past medical history of hemorrhoids who was transferred from an outside facility for further evaluation of perirectal abscess. The patient was admitted to inpatient setting for further treatment and evaluation. Hospital Course The patient was transferred to [facility] for further evaluation because of insurance reasons. General surgery consult was obtained. The patient underwent an incision and drainage of the posterior perirectal abscess on 04/06/2018. Meanwhile, the patient was maintained on antimicrobial therapy including coverage for anaerobes. The patient's culture from the abscess showed positive E. coli ESBL and Enterococcus species. Therefore, an infectious disease consult was obtained. As per infectious diseases, the patient will be discharged home on Cipro plus Flagyl for another 7 more days. The patient responded well to the antimicrobial therapy. The patient was given wet-to-dry dressing changes at the abscess removal site. Home health was arranged for helping the patient with wet-to-dry dressing changes. The patient will follow up with Dr. San in 1 week. The patient had a stable hospital course. At this time I would like to thank all the consultants for seeing the patient, doing the necessary procedures, and providing clinical recommendations The patient was seen in collaboration with Dr. Yu. Home Meds Active Scripts Metronidazole* (Metronidazole*) 500 Mg Tablet, 500 MG PO TID for 7 Days, TAB Prov:GEORGE BETTS MD 04/07/18 Ciprofloxacin Hcl* (Ciprofloxacin Hcl*) 500 Mg Tablet, 500 MG PO BID, #14 TAB Prov:GEORGE BETTS MD 04/07/18 Docusate Sodium* (Colace*) 100 Mg Capsule, 100 MG PO BID for 10 Days, CAP Prov:GEORGE BETTS MD 04/07/18 Acetaminophen* (Tylenol*) 325 Mg Tablet, 650 MG PO Q6H PRN for .PAIN 1-3 OR TEMP for 10 Days, TAB Prov:GEORGE BETTS MD 04/07/18 Meclizine Hcl* (Antivert*) 12.5 Mg Tab, 12.5 MG PO Q6H PRN for DIZZINESS, #20 TAB Prov:ANNE OH MD 12/24/17 Follow-up Plan Dr Marcy San 1wk Primary Care Provider Adan Morgan Time spent on discharge: > 30 minutes Pending Labs RUN DATE: 04/09/18 [facility] PAGE 1 RUN TIME: [id number] [place] [address] Teddy Cavazos M.D. American Sign Language Interpreter Sidney Rodriguez M.D. Co-American Sign Language Interpreter ERASTO#: [id number] Name: KRISTINA SCHNEIDER Age/Sex: 37/M Attend Dr: GEORGE ARECHIGA MD Acct: [id number] MR# : [id number] : 1980 [address] Admit: 04/05/18 Specimen: [id number] Status: Complete Alfredo: 04/06/18-1158 Rcvd: 04/06/18-1305 Source: ABSCESS Sp Descrip: Procedure Result Microbiology GRAM STAIN Final POLYMORPH. LEUKOCYTE 1+ EPITHELIAL CELLS 1+ GRAM POS COCCI IN PAIRS 1+ GRAM NEGATIVE RODS 1+ WOUND CULTURE Final Organism 1 ESCHERICHIA COLI (ESBL) QUANTITY SCANT GROWTH . MULTI DRUG RESISTANT ORGANISM Organism 2 ENTEROCOCCUS SPECIES QUANTITY ISOLATED FROM BROTH ONLY PHONED TO ARLINE LEIGH AT 0808 04/08/18 BY AD. NOTIFIED IAM BALL NEHA, IC AT 9741 04/08/18 BY AD. ECOREINALDO ESBL ECOLI ESBL ENT SPS M.I.C. RX M.I.C. RX M.I.C. RX --------- --- --------- --- --------- --- AMPICILLIN >=32 R <=2 S CEFAZOLIN R CEFEPIME <=1 S CEFOTAXIME R CIPROFLOXACIN <=0.25 S GENTAMICIN <=1 S LEVOFLOXACIN <=0.12 S MEROPENEM 0.032 S PENICILLIN-G 4 S VANCOMYCIN 1 S TOBRAMYCIN <=1 S TRIMETHOPRIM/SULFAMETHOXAZOLE <=20 S PIPERACILLIN/TAZOBACTAM <=4 S ............................................................................................ Flags: Critical Hi = *H Critical Lo = *L Microbiology Abnormal = * Abnormal Hi = H Abnormal Lo = L Blood Bank Abnormal = * Susceptability Flags: S = Sensitive R = Resistant I = Intermediate END OF REPORT MOISÉS JOE NP Apr 09, 2018 14:40
[2018-04-09 15:04] VITALS: BP 110/68; PULSE 82; RESP 20
[2018-04-09] MEDS ORDERED: CIPROFLOXACIN 250 MG TAB PO SCH (18:00)
== END 2018-04-09 17:30 | disposition home health service (06) | DRG 854 ==
LOC: UNDOADMIN 23:48 → PP2 23:48
PROVIDERS: ADMIT Internal Medicine; ATTEND Internal Medicine
PROC: 0D9P7ZZ Drainage of Rectum, Via Natural or Artificial Opening (ICD-10-PCS; principal; 2018-04-06 11:30)
DX: A41.51 Sepsis due to Escherichia coli [E. coli] (principal); K61.1 Rectal abscess; A41.81 Sepsis due to Enterococcus; K64.9 Unspecified hemorrhoids; B96.20 Unspecified Escherichia coli [E. coli] as the cause of diseases classified elsewhere; B95.2 Enterococcus as the cause of diseases classified elsewhere
CPT/HCPCS: 80053; 81003; 83036; 83735; 85025; 87070; C9113; J0744; J2175; J2270; J2405; J2765; J3010; J7030